=== PATIENT | male | born 1945 | race Caucasian/White ===

== ENCOUNTER 2018-01-24 22:29 | Emergency (ER) | payer OTHER ==
[~2018-01-24] VITALS: Ht 177.8 cm; Wt 86.2 kg
[2018-01-24] MEDS ORDERED: LIPITOR20 MG (22:35)
[2018-01-24] MEDS ORDERED: LEVOCETIRIZINE D5 MG (22:35)
[2018-01-24] MEDS ORDERED: BREO ELLIPTA 21 EACH (22:35)
[2018-01-24] MEDS ORDERED: PRADAXA150 MG (22:36)
[2018-01-24] MEDS ORDERED: VITAMIN D22000 UNIT (22:36)
[2018-01-25] MEDS ORDERED: KETO10TA2 PO (01:30)
[2018-01-25] MEDS ORDERED: NORFLEX100MG PO (01:30)
== END 2018-01-25 01:38 | disposition home or self-care (01) ==
LOC: ER 22:29
DX: S20.212A Contusion of left front wall of thorax, initial encounter (principal); S30.0XXA Contusion of lower back and pelvis, initial encounter; M62.830 Muscle spasm of back; W18.09XA Striking against other object with subsequent fall, initial encounter; Y93.89 Activity, other specified; Y92.89 Other specified places as the place of occurrence of the external cause; Y99.8 Other external cause status